=== PATIENT | male | born 2000 | race Hispanic/Latino ===

== ENCOUNTER 2019-12-10 15:14 | Emergency (ER) | payer OTHER ==
[2019-12-10 16:28] LABS: RAPID GROUP A STREP POSITIVE (NEGATIVE)
[2019-12-10] MEDS ORDERED: AMOXICILLIN 500 MG CAPSULE PO ONE (16:46)
[2019-12-10] MEDS ORDERED: ACETAMINOPHEN EXTRA STRENGTH 500 MG TABLET ONE (16:46)
== END 2019-12-10 16:54 | disposition home or self-care (01) ==
LOC: EDH 15:14
DX: J02.0 Streptococcal pharyngitis (principal); U07.1 COVID-19
CPT/HCPCS: 87804 ×2; 87880; 99283; U0003; 36415